=== PATIENT | female | born 1965 | race Caucasian/White ===

== ENCOUNTER 2016-12-05 21:32 | Emergency (ER) | payer BC, OTHER ==
[~2016-12-05 21:32] MED LIST: LORAZEPAM 2 MG/ML SOL IV ONE
[2016-12-05] MEDS ORDERED: LORAZEPAM 2 MG/ML SOL ONE (21:39)
[2016-12-05 21:58] VITALS: RESP 20; TEMP 98
[2016-12-05 21:58] LABS: BASOPHILS % (AUTO) 0 % (0-3); EOSINOPHILS % (AUTO) 0 % (0-9); HEMATOCRIT 40 % (35-47); MEAN CORPUSCULAR VOLUME 82 fL (81-99); MONOCYTES % (AUTO) 4.4 % (0-12); NEUTROPHILS % (AUTO) 85.2 % (37-80)
[2016-12-05 22:12] LABS: ALBUMIN 4.5 gm/dl (3.4-5.0); ALT 27 IU/L (14-63); CALCIUM 9.2 mg/dl (8.5-10.1); GLOM FILT RATE 78 mL/min (>60); MAGNESIUM 2.1 mg/dl (1.8-2.4); POTASSIUM 3.4 mMol/L (3.5-5.1); SODIUM 139 mMol/L (136-145)
[2016-12-05] MEDS ORDERED: SODIUM CHLORIDE 0.9% FLUSH 10 ML SOL IV PRN (22:22)
[2016-12-05] MEDS ORDERED: POTASSIUM CHLORIDE 10 MEQ TER PO ONE (22:28)
[2016-12-05] MEDS ORDERED: POTASSIUM CHLORIDE 10 MEQ TER ONE (22:30)
[2016-12-05 22:57] VITALS: BP 131/89; PULSE 83; O2SAT 91
== END 2016-12-05 22:48 | disposition home or self-care (01) | DRG 880 ==
LOC: ED 21:32
DX: F41.9 Anxiety disorder, unspecified (principal); R56.9 Unspecified convulsions; E03.9 Hypothyroidism, unspecified; R20.0 Anesthesia of skin; R51 Headache; R40.2142 Coma scale, eyes open, spontaneous, at arrival to emergency department
CPT/HCPCS: 70450; 80053; 83735; 84484; 85025; 85610; 93005; 96374; 99284; 99285; 99291; J2060

== ENCOUNTER 2017-12-29 09:07 | Day surgery (SDC) | payer BC ==
[~2017-12-29 09:07] MED LIST changes: +LIDOCAINE HCL 1% MPF SOL ONE; -LORAZEPAM 2 MG/ML SOL IV ONE; +PROPOFOL 500 MG/50 ML EMU IV ONE
[2017-12-29 11:04] VITALS: BP 138/94; PULSE 78; RESP 18; TEMP 97.5; O2SAT 100
== END 2017-12-29 11:20 | disposition home or self-care (01) ==
LOC: SURG 09:07
PROVIDERS: ATTEND Surgery
DX: Z12.11 Encounter for screening for malignant neoplasm of colon (principal)
CPT/HCPCS: J2001; J2704